=== PATIENT | male | born 1985 | race Caucasian/White ===

== ENCOUNTER 2017-02-02 18:35 | Emergency (ER) | payer SELFPAY ==
[2017-02-02 18:44] VITALS: BP 146/97
--- NOTE | 2017-02-02 20:28 | RAD ---
HISTORY: Trauma, headache COMPARISONS: None VIEWS: 6, Frontal, lateral, open-mouth odontoid, and bilateral oblique views of the cervical spine. FINDINGS: The cervical spine is visualized from the skull base through T1. ALIGNMENT: There is straightening of the normal cervical lordosis. VERTEBRAL BODIES: The odontoid process is intact. The atlantoaxial intervals are symmetric. There is elongation of the transverse processes of C7 JOINTS: There is no subluxation or dislocation. The facet joints are unremarkable. INTERVERTEBRAL DISCS: There is mild diffuse loss of intervertebral disc height. SOFT TISSUE: The prevertebral soft tissues are normal. OTHER: The skull base is normal. The lung apices are clear. IMPRESSION: STRAIGHTENING OF THE CERVICAL LORDOSIS. NO ACUTE OSSEOUS INJURY.
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
[2017-02-02] MEDS ORDERED: Cyclobenzaprine TAB* 10 MG PO ONE (20:36)
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
== END 2017-02-02 20:51 | disposition home or self-care (01) ==
LOC: UCEAST 18:35
DX: S13.4XXA Sprain of ligaments of cervical spine, initial encounter (principal); V49.9XXA Car occupant (driver) (passenger) injured in unspecified traffic accident, initial encounter; Y93.9 Activity, unspecified; Y92.9 Unspecified place or not applicable; Y99.9 Unspecified external cause status; S80.02XA Contusion of left knee, initial encounter
CPT/HCPCS: 72050; 99202; A9270-GY; G0463